=== PATIENT | male | born 1960 | race Caucasian/White ===

== ENCOUNTER → 2022-02-16 | Outpatient (CLI) | payer BC ==
[2022-02-16 18:37] LABS: Basophils # (A) 0.04 X 10*3/uL (0.00-0.10); Basophils % (A) 0.7 %; Eosinophils # (A) 0.12 X 10*3/uL (0.04-0.35); Eosinophils % (A) 2.1 %; HCT 44.3 % (39.6-50.0); HGB 14.6 g/dL (13.0-17.0); Immature Grans, Automated 0.2 %; Lymphocytes # (A) 1.27 X 10*3/uL (0.90-5.00); Lymphocytes % (A) 21.7 %; MCH 31.2 pg (27.0-32.0); MCV 94.7 fL (80.0-97.0); Mean Platelet Volume 9.3 fL (9.5-12.2); Monocytes # (A) 0.62 X 10*3/uL (0.20-1.00); Monocytes % (A) 10.6 %; NRBC Per 100 WBC 0 /100 WBCS (0.0-0.0); Neutrophils # (A) 3.78 X 10*3/uL (1.80-7.70); Neutrophils % (A) 64.7 %; Platelet Count 262 X 10*3/uL (140-440); RBC 4.68 X 10*6/uL (4.40-5.60); RDW 12.8 % (11.5-14.5); WBC 5.84 X 10*3/uL (4.50-10.00)
[2022-02-16 18:41] LABS: ALT 37 U/L (10-49); AST 25 U/L (14-35); African American GFR (CKD) 108.4 (60.0-200.0); Albumin/Globulin Ratio 1.65 (1.60-3.17); Alkaline Phosphatase 99 U/L (41-126); BUN/Creat Ratio 11.94 Ratio (12.00-20.00); Blood Urea Nitrogen 10.1 mg/dL (9.0-27.0); Calcium 9.3 mg/dL (8.7-10.3); Carbon Dioxide 25.8 mmol/L (20.0-27.5); Chloride 106 mmol/L (96-109); Globulin 2.4 g/dL (1.6-3.3); Glucose 92 mg/dL (70-110); LDL Cholesterol,Calculated 48.5 mg/dL (0.0-131.0); Non-African American GFR(CKD) 93.6 (60.0-200.0); Potassium 4.7 mmol/L (3.5-5.5); Sodium 141 mmol/L (135-145); Total Protein 6.5 g/dL (6.2-8.2); VLDL Calculation 12.62 mg/dL (5.00-40.00)
== END | disposition home or self-care (01) ==
LOC: LABWHC1 11:05
PROVIDERS: ATTEND Family Medicine
DX: Z00.00 Encounter for general adult medical examination without abnormal findings (principal); I10 Essential (primary) hypertension; Z79.899 Other long term (current) drug therapy
CPT/HCPCS: 36415; 80053; 80061; 83036; 84153; 84443; 85025

== ENCOUNTER 2022-03-25 07:53 | Day surgery (SDC) | payer BC ==
[2022-03-24 11:33] VITALS: BMI 21.9
[~2022-03-25 07:53] MED LIST: LACTATED RINGERS 1,000 ML IV SCH
[2022-03-25 08:45] VITALS: TEMP 97
--- NOTE | 2022-03-25 09:25 | P.GSHP ---
History of Present Illness H&P Date: 03/25/22 Chief Complaint: Diarrhea This is a 61-year-old male who presents today for colonoscopy. Patient issues with diarrhea. Past Medical History Past Medical History: Seizure Disorder Additional Past Medical History / Comment(s): BRAIN TUMOR REMOVED 1972, LAST SEIZURE AUGUST 2020, MITRAL VALVE PROLAPSE History of Any Multi-Drug Resistant Organisms: None Reported Past Surgical History: Bowel Resection, Hernia Repair Additional Past Surgical History / Comment(s): HIATAL HERNIA REPAIR, Past Anesthesia/Blood Transfusion Reactions: No Reported Reaction Smoking Status: Never smoker - Past Family History Mother Family Medical History: No Reported History Medications and Allergies Home Medications Medication Instructions Recorded Confirmed Type Ascorbic Acid [Vitamin C] 500 mg PO DAILY 03/24/22 03/24/22 History Zinc Gluconate [Zinc] 100 mg PO DAILY 03/24/22 03/24/22 History carvediloL [Coreg] 3.125 mg PO BID 03/24/22 03/25/22 History Allergies Allergy/AdvReac Type Severity Reaction Status Date / Time No Known Allergies Allergy Verified 03/25/22 08:40 Surgical - Exam Vital Signs Temp Pulse Resp BP Pulse Ox 97 F L 55 L 18 132/60 97 03/25/22 08:43 03/25/22 08:43 03/25/22 08:43 03/25/22 08:43 03/25/22 08:43 - General well developed, well nourished, no distress - Eyes PERRL - ENT normal pinna - Neck no masses - Respiratory normal expansion - Cardiovascular Rhythm: regular - Abdomen Abdomen: soft, non tender Assessment and Plan Assessment: History of diarrhea. We'll perform colonoscopy to evaluate for possible colitis.
[2022-03-25] MEDS ORDERED: PROPOFOL 10 MG/ML 20 ML VIAL IV ONE (09:27)
--- NOTE | 2022-03-25 09:51 | P.OP ---
Date of Procedure: 03/25/22 Preoperative Diagnosis: Diarrhea Postoperative Diagnosis: Internal and external hemorrhoids Procedure(s) Performed: Colonoscopy Anesthesia: MAC Surgeon: Margarito Terrell Pathology: none sent Condition: stable Disposition: PACU Description of Procedure: The patient's placed on the endoscopy table in the lateral position. He received IV sedation. Digital rectal exam performed which revealed internal and external hemorrhoids. The possible colonoscope was then placed patient anus and passed throughout the colon. The scope could not be entered in the cecum secondary to tortuosity valve. Multiple times made to maneuver the colonoscope into the cecum however this wasn't possible. Scope was withdrawn. The visualized right colon, transverse colon and descending colon appeared normal. The sigmoid colon. Normal. Scope brought back the rectum and this was normal. Scope was withdrawn to anus and internal and external hemorrhoids were noted. Scope withdrawn for patient.
[2022-03-25 10:06] VITALS: BP 113/63; PULSE 57; RESP 16
== END 2022-03-25 10:45 | disposition home or self-care (01) ==
LOC: ORWHC2ENDO 07:53
PROVIDERS: ATTEND Surgery
DX: K64.4 Residual hemorrhoidal skin tags (principal); K64.8 Other hemorrhoids; I34.1 Nonrheumatic mitral (valve) prolapse; G40.909 Epilepsy, unspecified, not intractable, without status epilepticus; I10 Essential (primary) hypertension; Z86.011 Personal history of benign neoplasm of the brain; Z98.890 Other specified postprocedural states; Z79.899 Other long term (current) drug therapy
CPT/HCPCS: 45378; J2704

== ENCOUNTER → 2023-04-25 | Outpatient (CLI) | payer BC ==
--- NOTE | 2023-04-25 10:41 | CT ---
EXAMINATION TYPE: CT chest wo con CT DLP: 150.8 mGycm, Automated exposure control for dose reduction was used. DATE OF EXAM: 04/25/2023 10:33 AM COMPARISON: None CLINICAL INDICATION:Male, 63 years old with history of I71.10 THORACIC AORTIC ANEURYSM, RUPTURED, UNS PECI; PHH, h/o thoracic aneurysm TECHNIQUE: Multiple axial images were obtained through the chest without IV contrast. Lack of IV or o ral contrast limits evaluation of solid and hollow organ viscera. . Coronal and sagittal reformats re viewed. FINDINGS: LUNGS/ PLEURA: No pleural effusion, pneumothorax, focal consolidation. No sponges pulmonary nodule or mass. Mild centrilobular emphysematous changes. AIRWAY: Patent and unremarkable.. HEART: Mildly enlarged. No pericardial effusion. MEDIASTINUM: No gross evidence of adenopathy. VASCULATURE: Aortic root aneurysmal dilatation of 4.8 cm. Ascending thoracic aortic aneurysm measuri ng up to 4.5 cm. Descending thoracic aorta measures up to 2.7 cm. No evidence to suggest intramural h ematoma. MUSCULOSKELETAL: No acute osseous abnormalities. Right shoulder prosthesis. Increased thoracic kyphos is. SOFT TISSUES/LYMPH NODES: Unremarkable. LOWER NECK: No significant findings. UPPER ABDOMEN: Hepatic cysts measuring up to 2.4 cm. Additional subcentimeter hypodense foci which ar e too small to characterize but likely represent cysts. Left kidney is not visualized and may be surg ically absent. IMPRESSION: 1. Aneurysm dilatation of the aortic root and ascending thoracic aorta measuring up to 4.8 and 4.5 c m respectively. 2. Mild COPD changes.
== END | disposition home or self-care (01) ==
LOC: RADCTMAIN 09:47
PROVIDERS: ATTEND Family Medicine
DX: I71.21 Aneurysm of the ascending aorta, without rupture (principal); J44.9 Chronic obstructive pulmonary disease, unspecified
CPT/HCPCS: 71250